=== PATIENT | female | born 1940 | race Caucasian/White ===

== ENCOUNTER 2018-06-10 09:15 | Day surgery (SDC) | payer MEDICARE, SELFPAY ==
[2018-06-05 14:14] VITALS: BP 123/68; PULSE 85; RESP 18; TEMP 37.4; O2SAT 95; BMI 20.9
[2018-06-05 16:52] LABS: Hematocrit 37.1 % (37-47); Hemoglobin 12.5 g/dl (12.0-15.0); Mean Corp Hgb Conc 33.7 g/gl (32-36); Mean Corpuscular Hgb 30.3 pg (27.0-32.0); Mean Platelet Vol. 10.1 fl (6.2-12.0); Platelet Count 270 K/mm3 (150-450); RBC Distribution Width CV 16.6 % (11.6-14.6); RBC Distribution Width SD 54.1 fl (35.1-43.9); Red Blood Count 4.12 M/mm3 (4.2-5.4); White Blood Count 11.9 K/mm3 (4.4-11.0)
[2018-06-05 16:53] LABS: Scan Indicated on CBC? Y/N NO
[2018-06-05 17:29] LABS: Anion Gap 12 (5-15); BUN 8 mg/dL (7-18); Calcium,Total 9.1 mg/dL (8.5-10.1); Chloride 93 mmol/L (98-107); Creatinine, Serum 0.66 mg/dL (0.55-1.02); EST Glomerular Filtration Rate 92 mL/min (>60); Est Glom Filt Rate - Afr Amer 111 mL/min (>60); Estimated Creatinine Clearance 39.59 ml/min; Glucose 123 mg/dL (74-106); Potassium 3.1 mmol/L (3.5-5.1); Sodium Level 131 mmol/L (136-145)
--- NOTE | 2018-06-10 | IMM_PTH ---
PATIENT: DAVID WHITEHEAD LOC: [facility] – [place] U#:[id number] AGE/SX: 77/F ROOM: RE06/10/[address]: Dr. Karlo Ontiveros MD : 1940 BED: DIS: 06/10/2018 SPEC #: [id number] RECD: 06/11/18 12:49 STATUS: KEN REQ #: [id number] VANESSA: 06/10/18 00:[address]: Karlo Ontiveros DEPT: IMMUNOHISTOCHEMISTRY RECD BY: Letitia Brown ENTERED: 06/11/18 12:51 SP TYPE: IMMUNO OTHR DR: Tabatha Worley, TUBE BALANCER-C Tissues: A - Vocal cord, NOS B - Vocal cord, NOS Procedures: Synapto (add) CD45 (add) CD56 (add) CHROMO (add) CK20 (add) CK8 (add) TTF1 (add) Pankeratin (initial) CK7 (initial) Comments: @ Specimen number changed from [id number] to [id number] @ on 06/11/18 at 1315 by RGOOD. PHYSICIAN & INSTITUTION [facility] [id number] SPECIMEN INFORMATION: Tissue Source: A ? Left false vocal cord, B ? Right false vocal cord Clinical Info: Hoarseness, history of malignant neoplasm Specimen Number: [id number] A & B CPT code: 61778 x2, 95962 x9 METHODOLOGY: Deparaffinized sections of prefer/formalin-fixed tissue or PAP/DQ stained slides are incubated with monoclonal/polyclonal antibodies/oligonucleotide probes. Localization is made via biotin free immunoperoxidase method. Appropriate controls are performed and reacted as expected. Results on target cell population are indicated in the following table: RESULTS: ANTIBODY / CLONE RESULT Block A CK7 (OV-TL12/30) positive CK8 (42zexkD97) positive CK20 (KS20.8) negative CD56 (123C3.D5) positive Chromo (LK2H10) positive Synapto (polyclonal) positive CD45 (RP2/18) negative TTF-1 (8G7G3/1) positive, focal Block B CK8 (02qfktG82) negative AE1-3 (AE1/AE3/PCK26) negative CD45 (RP2/18) positive These tests were developed and their performance characteristics determined by [facility]. They may not have been cleared or approved by the U.S. Food and Drug Administration. The FDA has determined that such clearance or approval is not necessary. INTERPRETATION: A. Left false vocal cord, biopsy: Poorly differentiated neuroendocrine carcinoma, small cell carcinoma. B. Right false vocal cord, biopsy: Negative for malignancy. Chronic inflammation. SJ:daniela 06/12/18 Case has been reviewed in consultation with Dr. Oshea who concurs with the above diagnosis. IDC:AM
--- NOTE | 2018-06-10 | VOCOB_PTH ---
PATIENT: DAVID WHITEHEAD LOC: [facility] – [place] U#:[id number] AGE/SX: 77/F ROOM: RE06/10/[address]: Dr. Karlo Ontiveros MD : 1940 BED: DIS: 06/10/2018 SPEC #: [id number] RECD: 06/10/18 15:35 STATUS: KEN ENZO #: [id number] VANESSA: 06/10/18 00:[address]: Karlo Ontiveros DEPT: SURGICAL PATHOLOGY RECD BY: Geoff Rodriguez ENTERED: 06/10/18 15:35 SP TYPE: VOCAL CORD OTHR DR: Tabatha Worley, REFINED SYRUP OPERATOR-C Tissues: A - Vocal cord, NOS B - Vocal cord, NOS Procedures: Surgery Specimen Level IV HEADER OPERATION: Microlaryngoscopy, direct with biopsy PRE-OP DIAGNOSIS: Hoarseness, history of malignant neoplasm of larynx, malignant neoplasm of false vocal cord TISSUE SUBMITTED: A ? Left false vocal cord, B ? Right false vocal cord MICROSCOPIC DIAGNOSIS A. Left false vocal cord, biopsy: Poorly differentiated neuroendocrine carcinoma, small cell carcinoma. See comment. B. Right false vocal cord, biopsy: A fragment of squamous mucosa with mild chronic inflammation. SJ:rg 06/11/18 COMMENT A & B. Immunohistochemistry ([id number]) supports the above diagnosis. 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 Case has been reviewed in consultation with Dr. Oshea who concurs with the above diagnosis. IDC:AM MICROSCOPIC DESCRIPTION Slides are reviewed. GROSS DESCRIPTION A - Received in fixative is one container labeled with the patient's name and designated left false vocal cord. The specimen consists of multiple pieces of hilario-pink soft tissue that in aggregate measure 2.5 x 2.5 x 0.3 cm. The entire specimen is submitted in one cassette. B - Received in fixative is one container labeled with the patient's name and designated right false vocal cord. The specimen consists of a piece of hilario soft tissue measuring 0.1 cm in greatest dimension. The entire specimen is submitted in one cassette. / ILENE:daniela 06/10/18 TC:0 CPT: 66609 x2
[2018-06-10 09:32] VITALS: BP 148/76; PULSE 77; RESP 20; TEMP 36.8; O2SAT 98; BMI 20.9
[2018-06-10 09:49] LABS: Potassium 3.2 mmol/L (3.5-5.1)
--- NOTE | 2018-06-10 11:38 | PCM.DC ---
You will use the following diet at home:: Regular Discharge Activity: Return to Normal Activity Allergies/Adverse Reactions: Allergies adhesive tape Allergy (Verified 06/05/18 14:08) Rash Penicillins [PCN] Allergy (Verified 06/05/18 14:08) Hives Medications to take at Discharge Albuterol Inhaler [Ventolin Hfa (SP)] 1 - 2 puff INHALATION Q6H PRN PRN 06/05/18 Cetirizine HCl [Zyrtec] 10 mg PO DAILY 06/05/18 Fluticasone 0.05% [Flonase Nasal [place]] 1 spray NASAL BID 06/05/18 Losartan/Hydrochlorothiazide [Hyzaar 100-25 Tablet] 1 tab PO DAILY 06/05/18 Sertraline HCl [Zoloft] 100 mg PO DAILY 06/05/18 Primary Care Physician: Tabatha Worley NP-C [Primary Care Provider] - Test Results: Test results from this visit will be discussed in further detail at your follow-up appointment, if applicable.
--- NOTE | 2018-06-10 11:38 | PCM.OPRPT ---
Report of Operation Date of Procedure: 06/10/18 Pre-Operative Diagnosis: laryngeal mass Post-Operative Diagnosis: same Surgery/Procedure Performed:: microdirect laryngoscopy with biopsy Type of Anesthesia:: General Anesthesiologist: Adolfo Couch Specimen's removed: left false vocal cord; right false vocal cord Estimated Blood Loss (mL): minimal Description of Procedure: The patient was taken to the OR on 06/10/18. She was placed in the supine position on the OR table. She was given general anesthesia. I then intubated the patient through a Dedo laryngoscope with a 6.0 ETT. She was not ventilating well. The tube was removed and a 6.5 ETT was placed. She then had much better ventilation. A gum guard was placed on the upper gingiva. The laryngoscope was then placed in the Lewy suspension on a Cifuentes stand. The operating microscope was then used. Photos were taken. I then used large cup forceps to take multiple specimens of the mass that was coming from the left false vocal cord. Multiple specimens were taken to improve her airway. They were sent for permanent section. I also took a single specimen from the left FVC. The true cords appeared un involved. The bulk of the tumor was on the left false cord and into the left ventricle. Hemostasis was achieved with topical adrenaline on Codman's. All instrumentation was then removed. She was awoken and brought to the recovery room in stable condition. Blood loss minimal, replacement none, sponge, needle and instrument count were correct at the end of the procedure.
[2018-06-10 11:45] VITALS: BP 148/76; BP 157/92; PULSE 133; RESP 16; TEMP 37.3; O2SAT 95
[2018-06-10 12:00] VITALS: BP 125/78; BP 148/76; PULSE 119; RESP 28; O2SAT 94
[2018-06-10 12:15] VITALS: BP 103/69; BP 148/76; PULSE 108; RESP 22; O2SAT 92
[2018-06-10 12:31] VITALS: BP 104/73; BP 148/76; PULSE 107; RESP 20; TEMP 37.1; O2SAT 93
[2018-06-10] MEDS: Acetaminophen 325 MG Tablet 650 MG PO (13:06)
[2018-06-10 13:26] VITALS: BP 131/69; BP 148/76; PULSE 83; RESP 18; TEMP 37.1; O2SAT 98
== END 2018-06-10 13:27 | disposition home or self-care (01) ==
LOC: SDC 09:16 → AC 09:16
PROVIDERS: Family Provider Nurse Practitioner Primary Care; PCP Nurse Practitioner Primary Care; Visit Provider Otolaryngology
PROC: 0CJS8ZZ Inspection of Larynx, Via Natural or Artificial Opening Endoscopic (ICD-10-PCS; CPT 31575; principal; 2018-06-10 11:10)
DX: C32.1 Malignant neoplasm of supraglottis (principal); C7A.1 Malignant poorly differentiated neuroendocrine tumors; J44.9 Chronic obstructive pulmonary disease, unspecified; I10 Essential (primary) hypertension; F41.9 Anxiety disorder, unspecified; Z78.0 Asymptomatic menopausal state; Z79.899 Other long term (current) drug therapy; Z85.21 Personal history of malignant neoplasm of larynx; Z86.2 Personal history of diseases of the blood and blood-forming organs and certain disorders involving the immune mechanism; Z85.3 Personal history of malignant neoplasm of breast
CPT/HCPCS: 00320; 31536; 36415; 80048; 84132; 85027; 88305; 88341; 88342; 93005; J7120; J2405; J3490

== ENCOUNTER → 2018-07-01 08:18 | Outpatient (CLI) | payer MEDICARE, SELFPAY ==
--- NOTE | 2018-07-01 09:00 | PET_ITS ---
EXAMINATION: FDG PET CT INDICATIONS: A 77-year-old female with recent diagnosis of primary head and neck carcinoma presenting for initial staging examination and prior remote history of primary breast carcinoma. COMPARISON EXAMINATION: None available. INDEX LESION SIZE SUV INTERPRETATION Anterior neck, laryngeal structures false vocal cord 11.2 mm (frame 221) 3.2 Fulfills quantitative criteria for viable neoplasm Bilateral-lateral neck 12.6 mm x 16.5 mm largest (frame 244) 5.7 (max) Fulfills quantitative criteria for viable neoplasm Right breast heterogeneous 15.0 mm x 25.7 mm (frame 147) 2.5 Fulfills quantitative criteria for viable neoplasm, correlation with conventional mammography recommended NON-INDEX LESION SIZE SUV INTERPRETATION Mediastinum, bilateral thoracic perihilum 2.2 (max) Quantitative criteria for viable neoplasm are not fulfilled Right lower posterior hemithorax pulmonary parenchyma, right lower lobe 1.7 Quantitative criteria for viable neoplasm are not fulfilled TECHNIQUE: Following the intravenous administration of 14.12 mCi of F-18 deoxyglucose via the left wrist, multiplanar image acquisitions of the neck, chest, abdomen and pelvis to level of mid thigh, obtained at one hour post radiopharmaceutical administration contemporaneously interpreted with the current CT of the neck, chest, abdomen and pelvis to level of mid thigh, dated 07/01/18 via coregistration reveal: SERUM GLUCOSE LEVEL: 106 mg/dl. HEIGHT: 63 inches. WEIGHT: 115 lbs. FINDINGS: 1. Asymmetric increased glucose concentration is defined in the anterior neck, laryngeal structures contiguous to the posterior aspect of the left false vocal cord generating a calculated maximum standard uptake value of 3.2. The maximal axial diameter of the corresponding metabolic abnormality on review of CT of the neck dated 07/01/18 is 11.2 mm (AP). 2. An increase in glucose metabolism is defined in the right lateral neck involving level II A, left lateral neck involving level II B and the right periauricular region. The calculated maximum standard uptake value is 5.7. The maximal axial diameter of the corresponding metabolic, morphologic abnormality on review of CT of the neck dated 07/01/18 is 12.2 mm (transverse) x 16.5 mm (AP). 3. Asymmetric increased glucose concentration is demonstrated in the right breast generating a calculated maximum standard uptake value of 2.5. The maximal axial diameter of the corresponding metabolic, morphologic abnormality on review of CT of the thorax dated 07/01/18 is 15.0 mm (transverse) x 25.7 mm (AP). 4. Mild increased glucose concentration is identified in the subcarinal mediastinum and bilateral thoracic perihilar regions generating a calculated maximum standard uptake value of 2.2. Quantitative criteria for viable neoplasm are not fulfilled. 5. There is mild increased glucose concentration is observed in the right lower posterior hemithorax pulmonary parenchyma, right lower lobe generating a calculated maximum standard uptake value of 1.7. Quantitative criteria for viable neoplasm are not fulfilled. 6. Normal physiologic distribution of the radiopharmaceutical is apparent in the hepatic (3.1) and splenic parenchyma, both renal units, bladder and visualized intestinal tract. There is uniform distribution of the radiopharmaceutical concentration defined in the visualized cerebellar hemispheres and cerebral cortical structures.? Diffuse intestinal tract activity is noted throughout all four quadrants of the abdominal-pelvic retroperitoneum, mesentery consistent with normal physiologic distribution of the radiopharmaceutical. There is an asymmetric increase in glucose concentration observed at the level of the fourth-fifth lumbar vertebrae at the intervertebral disc space corresponding to osteophyte formation most consistent with degenerative arthritis. Pertinent CT findings are as follows. CHEST: Atherosclerotic calcification is defined in the thoracic aorta without evidence of dilatation, aneurysm formation. Coronary arterial calcification is observed. Emphysematous changes are noted in the right-left upper-mid lung zones. Parenchymal densities noted in the right posterobasilar hemithorax demonstrate mild non-quantitatively significant increased glucose metabolism as previously defined. Apparent surgical clip placement is manifest in the right axilla. ABDOMEN AND PELVIS: Atherosclerotic calcification is defined in the abdominal aorta without evidence of dilatation, aneurysm formation. Abdominal-pelvic arterial calcification is observed. Right-left inguinal soft tissue densities demonstrate no evidence of increased glucose metabolism. SKELETAL: Degenerative changes defined in the cervical, thoracic and lumbar spine demonstrate no evidence for glucose hypermetabolism. Diffuse demineralization is demonstrated. PET/PET/CT Tumor Base -Thigh Init IMPRESSION: 1. ABNORMAL EXAMINATION INDICATIVE OF MALIGNANT VIABLE NEOPLASM. 2. Increased glucose metabolism identified in the laryngeal structures to the left of the midline contiguous to posterior aspect of the false vocal cord fulfills quantitative criteria for viable neoplasm. 3. Enhanced radiopharmaceutical concentration observed in the bilateral-lateral neck, right parotid space fulfills quantitative criteria for viable neoplasm. 4. The increase in FDG uptake visualized in the right breast may be further investigated with conventional mammography secondary to the quantitative degree of uptake. 5. The mediastinal and thoracic perihilar increase in glucose concentration does not fulfill quantitative criteria for viable neoplasm. (Cayla et al, Journal of Clinical Oncology 16:2142, 1998). 6. Facilitated fluorine labeled glucose uptake noted in the right lower posterior hemithorax pulmonary parenchyma, right lower lobe does not fulfill quantitative criteria for malignant transformation. Electronic Signature Ryan Tejada D.O. Electronically Signed: Ryan Tejada DO at 23:27 EDT Tel , Service support ,
== END ==
PROVIDERS: Family Provider Nurse Practitioner Primary Care; PCP Nurse Practitioner Primary Care; Visit Provider Otolaryngology
DX: C32.9 Malignant neoplasm of larynx, unspecified (principal)
CPT/HCPCS: 78815; A9552; A4216

== ENCOUNTER 2019-01-11 15:56 | Emergency (ER) | payer MEDICARE, MEDICAID, SELFPAY ==
[2019-01-11 15:57] VITALS: BP 130/116; PULSE 110; RESP 19; TEMP 36.1; O2SAT 85; BMI 22.1
[2019-01-11 16:01] VITALS: BP 113/66; PULSE 102; O2SAT 91
--- NOTE | 2019-01-11 16:04 | RAD_ITS ---
STUDY: X-RAY - LUMBAR SPINE REASON FOR EXAM: Female, 78 years old. Multiple falls. Pain. TECHNIQUE: 3 view(s) of the lumbar spine were obtained. COMPARISON: None FINDINGS: There is generalized osteopenia. Normal lumbar lordosis. There is no substantial scoliosis. There is a normal alignment of the vertebrae. There is an anterior wedge compression deformity of L3, age undetermined. There is diffuse intervertebral disc space narrowing most marked at L4-5 and L5-S1 with osteophyte formation. There is marked vascular calcification. RAD/Lumbar Spine 2 or 3 Views IMPRESSION: Osteopenia with lumbar spondylosis. No acute finding. Electronically Signed: Moises Ann MD at 17:10 EDT , Service support ,
--- NOTE | 2019-01-11 16:04 | RAD_ITS ---
STUDY: X-RAY - PELVIS REASON FOR EXAM: Female, 78 years old. History of multiple falls. Pain. TECHNIQUE: One view of the pelvis was obtained. COMPARISON: None. FINDINGS: There is a non-specific bowel gas pattern. Normal visualized soft tissue structures. There is generalized osteopenia. Normal bilateral iliac wings, sacroiliac joints and visualized sacrum. Normal visualized bilateral superior and inferior pubic rami. Normal pubic symphysis. Normal ischial tuberosities. There is mild arthrosis of both hips. RAD/Pelvis 1 or 2 Views IMPRESSION: Osteopenia with osteoarthritic changes. No acute osseous abnormality. Electronically Signed: Moises Ann MD at 17:11 EDT , Service support ,
--- NOTE | 2019-01-11 16:05 | ED.VIS.GEN ---
History of Present Illness Chief Complaint: Fall Detail of Chief Complaint: Last Sunday and past Informant: Patient, - - Caregiver Limited by: Dementia Onset: - - 7 days ago and 3 days ago Context: - - Attempted to ambulate without assistance or walker Timing: Continuous Quality: Pain that she localizes to the sacral area and low back Location: Pelvis and low back Current Severity: Mild Maximum Severity: Moderate Worsened by: Movement Relieved by: Nothing improves with oxycodone Associated Symptoms: Pain and decreased activity Narrative: Patient is an elderly woman in hospice who was sent to the emergency room for evaluation of fracture since she is complaining of bilateral hip pain. She had a fall last January 04 and this past January 09. Apparently, she hit her head on January 04. There is no loss conscious. She is on no anticoagulant. She denies neck pain. Denies paresthesia, anesthesia or motor weakness. She has not been as active because of pain. She was sent because of concern for hip fracture. Prior similar symptoms: No Recent Illness/Hospitalization: No Past Medical History - Allergies and Home Meds Allergies/Adverse Reactions: Allergies adhesive tape Allergy (Verified 01/11/19 15:57) Rash Penicillins [PCN] Allergy (Verified 01/11/19 15:57) Hives Primary Care Physician: Tabatha Worley NP-C [Primary Care Provider] - Prior records reviewed: No - Documents from facility were reviewed Surgical History: noncontributory Lives: - - Hospice patient Smoking Status: Smoker, status unknown Alcohol: None Drugs: None Review of Systems General: Denies: Chills, Fever, Sweats Eyes: Denies: Visual changes - bilaterally, Diplopia ENT: Denies: Bilateral ear pain, Rhinorrhea, Sore throat Cardiovascular: Denies: Chest pain, Palpitations Respiratory: Denies: Dyspnea, Cough, Dyspnea on exertion Gastrointestinal: Denies: Abdominal pain, Nausea, Vomiting, Diarrhea, Melena, Hematochezia Genitourinary: Denies: Dysuria, Hematuria, Frequency Musculoskeletal: Reports: Back pain, Extremity Pain, - - Reportedly she complains of bilateral hip pain.. Denies: Myalgias, Arthralgias, Neck pain Skin: Denies: Rash, Wounds Neurological: Denies: Headache, Weakness, Parasthesia, Numbness Hematologic: Denies: Easy bruising, Easy bleeding Physical Exam Vital Signs/Narrative: Vital Signs Temp Pulse Resp BP Pulse Ox 01/11/19 16:01 102 H 113/66 91 01/11/19 15:57 97.0 F L 110 H 19 H 130/116 H 85 Inital Vital Signs reviewed: Yes General: Well nourished, Well developed, No Acute Distress Head: Normocephalic, Atraumatic Eyes: Perrl, EOMI. Negative for: Pale conjunctiva - Slight injection bilaterally, Scleral icterus ENT: Moist mucous membranes, No rhinorrhea, TM's clear Neck: Supple, Nontender, No lymphadenopathy, No JVD, - - No pain to palpation cervical spine and full range of motion without pain Cardiovascular: Regular rate, Regular rhythm, No murmurs, Normal S1, Normal S2 Respiratory: No distress, CTA bilaterally, Chest nontender Abdomen: Soft, Nontender, Nondistended, Normal bowel sounds, No masses. Negative for: Hepatomegaly, Splenomegaly Rectal: Deferred Back: Normal Inspection, Spinal tenderness, - - Pain to palpation over L4 and 5 as well as sacrum. There is no pain palpation over the left or right iliac wing. There is no pain the patient over the pubic symphysis. There is discomfort over the left ischial tuberosity. Logrolling of the right and left lower extremity causes no pain. There is no shortening. There is no pain the patient of the feet, legs, knees or thighs. Distal pulses were palpable. Negative for: CVA tenderness Extremities: Nontender, No edema. Negative for: Tenderness Skin: No rash, Pallor Neurological: Alert, Cranial nerves II-XII grossly intact, Normal Strength, Normal Sensation Psychological: Normal affect Diagnostic/Tx/Re-eval Chest X-Ray - ED: Read by ED Physician Single view x-ray of the pelvis reveal reveals no evidence of fracture of the pelvis right and left femoral neck. LS spine reveals calcification of the aorta with slight dilation. There is also compression of L3. This appears old. There is an x-ray from 2005. Based on comparison the compression fracture is new from 13 years ago. - Medical Decision Making Will obtain x-ray of the pelvis to evaluate for left ischial tuberosity fracture. Since that she has pain to palpation over the lower lumbar and sacrum limited LS view was obtained to evaluate for compression fracture. Patient was offered pain medicine. I was informed by attendant that she received opiate analgesia prior to transportation to the emergency department. ED Disposition - Plan for ED Patient: Disposition: Acute Care Hospital - Other Diagnosis: Traumatic compression fracture of L3 vertebra, Contusion of lower back and pelvis, initial encounter Instructions: ED Contusion Back, ED Fx Comp Vertebral Referrals: Tabatha Worley, CARPET INSPECTOR FINISHED-C [Primary Care Provider] - 10-14 Days if not better
[2019-01-11 17:05] VITALS: BP 102/68; PULSE 98; RESP 20; O2SAT 93
== END 2019-01-11 18:03 | disposition short-term general hospital (02) ==
PROVIDERS: Emergency Provider Emergency Medicine; Family Provider Nurse Practitioner Primary Care; PCP Nurse Practitioner Primary Care
DX: S32.039A Unspecified fracture of third lumbar vertebra, initial encounter for closed fracture (principal); S30.0XXA Contusion of lower back and pelvis, initial encounter; M25.552 Pain in left hip; M25.551 Pain in right hip; W19.XXXA Unspecified fall, initial encounter; Y93.9 Activity, unspecified; Y92.9 Unspecified place or not applicable; Y99.9 Unspecified external cause status; Z79.899 Other long term (current) drug therapy
CPT/HCPCS: 72100; 72170; 99284